=== PATIENT | male | born 1965 ===

== ENCOUNTER 2024-02-10 16:50 | Emergency (ER) | payer BC, OTHER ==
[2024-02-10 17:15] VITALS: RESP 18
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
[2024-02-10] MEDS: MORPHINE SULFATE 4 MG/ML SYRINGE IV STA (17:44)
[2024-02-10] MEDS: SODIUM CHLORIDE 0.9% 1,000 ML IV STA (17:46)
[2024-02-10 18:02] LABS: Basophils # (A) 0.1 k/uL (0-0.2); Basophils % (A) 1 %; Eosinophils # (A) 0.2 k/uL (0-0.7); Eosinophils % (A) 2 %; HGB 14.7 gm/dL (13.0-17.5); Lymphocytes # (A) 1.9 k/uL (1.0-4.8); Lymphocytes % (A) 20 %; MCH 30.2 pg (25.0-35.0); MCHC 33.3 g/dL (31.0-37.0); MCV 90.8 fL (80.0-100.0); Monocytes # (A) 0.4 k/uL (0-1.0); Monocytes % (A) 4 %; Neutrophils # (A) 6.6 k/uL (1.3-7.7); Neutrophils % (A) 72 %; Platelet Count 211 k/uL (150-450); RBC 4.85 m/uL (4.30-5.90); WBC 9.2 k/uL (3.8-10.6)
[2024-02-10 18:14] LABS: ALT 36 U/L (4-49); AST 32 U/L (17-59); African American GFR (CKD) >90 (>60 ml/min/1.73 sqM); Albumin 4.5 g/dL (3.5-5.0); Alcohol <10 mg/dL; Alkaline Phosphatase 57 U/L (38-126); Anion Gap 7 mmol/L; Blood Urea Nitrogen 18 mg/dL (9-20); Calcium 9.4 mg/dL (8.4-10.2); Carbon Dioxide 27 mmol/L (22-30); Chloride 107 mmol/L (98-107); Glucose 100 mg/dL (74-99); Non-African American GFR(CKD) >90 (>60 ml/min/1.73 sqM); Potassium 3.8 mmol/L (3.5-5.1); Sodium 141 mmol/L (137-145); Total Bilirubin 0.5 mg/dL (0.2-1.3); Total Protein 7.3 g/dL (6.3-8.2)
[2024-02-10 18:17] LABS: INR 0.9 (<1.2); Partial Thromboplastin Time 22.2 sec (22.0-30.0); Prothrombin Time 10.2 sec (10.0-12.5)
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
[2024-02-10] MEDS: KETOROLAC 15 MG/ML 1 ML VIAL IVP STA (20:40)
[2024-02-10] MEDS: ACET/COD 300 MG/30 MG STARTER PACK 6 TAB BTL PO STA (20:41)
[2024-02-10 21:10] VITALS: BP 126/84; PULSE 76; TEMP 97.9
== END 2024-02-10 20:47 | disposition home or self-care (01) ==
LOC: EC 16:50
DX: M54.9 Dorsalgia, unspecified (principal); Z87.891 Personal history of nicotine dependence; V23.49XA Other motorcycle driver injured in collision with car, pick-up truck or van in traffic accident, initial encounter; Y92.410 Unspecified street and highway as the place of occurrence of the external cause
CPT/HCPCS: 36415; 93005; 86900; 86901; 80053; 84484; 85025; 85610; 85730; 86850; 80320; 72125; 70450; 71260; 74177; 99284; 96374; 96375; 96361; J2270; J1885; Q9967